=== PATIENT | male | born 1975 | race Caucasian/White ===

== ENCOUNTER 2023-05-25 09:51 | Emergency (ER) | payer OTHER ==
[2023-05-25] MEDS ORDERED: IBUP-1971 PO (10:15)
[2023-05-25] MEDS ORDERED: PRED20TA PO (10:15)
[2023-05-25] MEDS ORDERED: AMOX-423 PO (10:15)
== END 2023-05-25 19:30 | disposition home or self-care (01) ==
LOC: SED 09:51
DX: J03.90 Acute tonsillitis, unspecified (principal); R07.0 Pain in throat; R50.9 Fever, unspecified; Z79.899 Other long term (current) drug therapy
CPT/HCPCS: 99283